=== PATIENT | male | born 1950 | race Hispanic/Latino ===

== ENCOUNTER 2018-06-27 10:45 | Day surgery (SDC) | payer OTHER ==
[2018-06-25 16:08] LABS: Absolute Lymphocytes (CBC) 1.5 K/uL (0.7-4.9); Absolute Monocytes 0.6 K/uL (0.1-1.3); Absolute Neutrophil 5.7 K/uL (1.8-8.0); Basophils % 0.3 % (0-1.3); Eosinophils % 0.6 % (0-4.4); Hematocrit 40.2 % (39.6-49.0); Lymphocytes % 19.4 % (15.3-44.8); MPV 9.7 fL (7.6-11.3); Monocytes % 7.9 % (3.3-12.3); RBC Red Blood Cell Count 4.35 M/uL (4.33-5.43)
[2018-06-25 16:13] LABS: Protime INR 1.04
--- NOTE | 2018-06-25 16:14 | RAD REPORT ---
EXAM DESCRIPTION: Edward Aceves (2 Views)06/25/2018 3:56 pm CLINICAL HISTORY: Preop for prostate surgery. Coronary artery disease COMPARISON: 2017 FINDINGS: The lungs appear clear of acute infiltrate. The heart is normal size IMPRESSION: No acute abnormalities displayed
[2018-06-25 16:23] LABS: Potassium 4.3 mmol/L (3.5-5.1)
[2018-06-25 16:28] LABS: Urine Appearance CLEAR; Urine Bilirubin NEGATIVE (NEG); Urine Blood NEGATIVE (NEG); Urine Color YELLOW; Urine Glucose NEGATIVE (NEG); Urine Protein NEGATIVE (NEG); Urine Urobilinogen 0.2 mg/dL (0.2-1.0); Urine pH 6.5 (5.0-7.0)
[2018-06-25 16:34] LABS: Urine Microscopic Reflex NO UMIC
--- NOTE | 2018-06-26 06:02 | EKG ---
Test Date: 2018-06-25 Test Time: 15:34:16 Outside Plant Technician: SURINDER MEASUREMENT RESULTS: Intervals: Rate: 67 AK: 134 QRSD: 100 QT: 380 QTc: 401 Parkin: P: 40 AK: 134 QRS: 43 T: 39 INTERPRETIVE STATEMENTS: Normal sinus rhythm Incomplete right bundle branch block Borderline ECG Compared to ECG 05/02/2017 11:50:59 Incomplete right bundle-branch block now present Sinus arrhythmia no longer present Electronically Signed On 06-26-18 06:01:21 BACKHAUL DRIVER by Abhilash Flood
[2018-06-27] MEDS ORDERED: Ringers Lactate 1,000 ML IV ONE (11:17)
[2018-06-27] MEDS ORDERED: GENTAMICIN 100 MG/100 ML BAG 100 MG/100 ML BAG IV ONE (11:18)
[2018-06-27] MEDS ORDERED: MIDAZOLAM HCL 2 MG/2 ML INJ ONE ×2 (12:28→12:36)
[2018-06-27] MEDS ORDERED: FENTANYL CITR 100 MCG/2 ML ONE (12:35)
[2018-06-27] MEDS ORDERED: PROPOFOL 200 MG/20 ML VIAL IV ONE (12:35)
[2018-06-27] MEDS ORDERED: KETOROLAC 30 MG/ML INJ ONE (12:58)
[2018-06-27] MEDS ORDERED: ONDANSETRON 4 MG/2 ML VIAL ONE (12:59)
[2018-06-27] MEDS ORDERED: OXYBUTYNIN CHLORIDE 5 MG TAB ONE (14:07)
[2018-06-27 15:03] VITALS: BP 155/72; TEMP 97; O2SAT 100
== END 2018-06-27 14:59 | disposition home or self-care (01) ==
LOC: OR 10:45
PROVIDERS: ATTEND Urology
PROC: 0T7D8DZ Dilation of Urethra with Intraluminal Device, Via Natural or Artificial Opening Endoscopic (ICD-10-PCS; principal; 2018-06-27 12:00)
DX: N40.1 Benign prostatic hyperplasia with lower urinary tract symptoms (principal); R39.12 Poor urinary stream; K40.90 Unilateral inguinal hernia, without obstruction or gangrene, not specified as recurrent; F17.200 Nicotine dependence, unspecified, uncomplicated; Z79.02 Long term (current) use of antithrombotics/antiplatelets; Z79.899 Other long term (current) drug therapy; Z95.5 Presence of coronary angioplasty implant and graft
CPT/HCPCS: 36415; 71046; 80048; 81003; 85025; 85610; 85730; 87086; 87088; 93005; C9740; J1580; J2250 ×2; J2405; J2704; J3010

== ENCOUNTER 2021-01-04 13:26 | Emergency (ER) | payer MEDICARE ==
[2021-01-04 14:46] LABS: Basophils % 0.6 % (0-1.3); Hematocrit 40.3 % (39.6-49.0); Lymphocytes % 17.9 % (15.3-44.8); MPV 9.5 fL (7.6-11.3); RBC Red Blood Cell Count 4.34 M/uL (4.33-5.43)
[2021-01-04 14:51] LABS: Urine Blood Trace-intact (Negative); Urine Glucose Negative (Negative); Urine Protein Negative (Negative)
[2021-01-04] MEDS ORDERED: LORAZEPAM 0.5 MG TABLET ONE (15:02)
[2021-01-04 15:08] LABS: Albumin 3.9 g/dL (3.4-5.0); Bilirubin Total 0.4 mg/dL (0.2-1.0); Potassium 3.7 mmol/L (3.5-5.1); Protein, Total 7.3 g/dL (6.4-8.2)
[2021-01-04 15:08] LABS: Barbiturates NEGATIVE (NEGATIVE); Benzodiazepines NEGATIVE (NEGATIVE); Cocaine NEGATIVE (NEGATIVE); METHAMPHETAM NEGATIVE (NEGATIVE); Methadone NEGATIVE (NEGATIVE); Opiates NEGATIVE (NEGATIVE); Phencyclidine NEGATIVE (NEGATIVE); THC Cannibis POSITIVE (NEGATIVE)
--- NOTE | 2021-01-04 15:30 | EDPHYS ---
Physician Documentation [facility] Name: Prince Mahmood Age: 70 yrs Sex: Male : 1950 Arrival Date: 01/04/2021 Time: 13:29 Bed 14 Private MD: ED Physician Paul Kelly HPI: 01/04 14:18 This 70 yrs old Male presents to ER via Ambulatory with complaints of Rash. pm1 14:18 The patient's rash thought to be caused by insect bites, or parasites. The rash is pm1 located on the body diffusely. The rash can be described as you cant see the rash but it is itchy. Mostly at night time. Onset: The symptoms/episode began/occurred 2 month(s) ago. Associated signs and symptoms: Pertinent positives: itching, Pertinent negatives: burning sensation, difficulty breathing, fever, vomiting, wheezing. Severity of symptoms: in the emergency department the symptoms have improved. Treatment given at home: None. The patient has been recently seen by a physician: the patient's primary care provider, with similar presenting complaints, Prescribed benadryl and seroquel about 1 month ago but has not been taking it. Saw his PCP today for the same complaint and she was upset with him that she is not taking the medications. Historical: - Allergies: 14:01 None; jd3 - PMHx: 14:01 High Cholesterol; Cirrhosis; GERD; blind in R eye; jd3 - PSHx: 14:01 back; benign tumor removed from R side of neck; jd3 - Immunization history:: Adult Immunizations up to date. - Social history:: Smoking status: Patient denies any tobacco usage or history of. ROS: 14:18 Eyes: Negative for injury, pain, redness, and discharge, ENT: Negative for injury, pm1 pain, and discharge, Neck: Negative for injury, pain, and swelling, Cardiovascular: Negative for chest pain, palpitations, and edema, Respiratory: Negative for shortness of breath, cough, wheezing, and pleuritic chest pain, Abdomen/GI: Negative for abdominal pain, nausea, vomiting, diarrhea, and constipation, Back: Negative for injury and pain, MS/Extremity: Negative for injury and deformity. 14:18 Constitutional: Positive for weight loss. 14:18 Skin: Positive for rash, diffusely, itching. 14:18 Psych: Positive for insomnia. 14:18 All other systems are negative. Exam: 14:18 Constitutional: This is a well developed, well nourished patient who is awake, alert, pm1 and in no acute distress. Head/Face: Normocephalic, atraumatic. 14:18 MS/ Extremity: Pulses equal, no cyanosis. Neurovascular intact. Full, normal range of motion. 14:18 Eyes: Exam is negative for acute changes, Extraocular movements: no acute changes, Conjunctiva: no acute changes, no injection, Sclera: no acute changes, icterus, is not appreciated. 14:18 ENT: Exam is negative for acute changes, Mouth: Lips: normal, Oral mucosa: normal, pink and intact, moist. 14:18 Cardiovascular: Rate: normal, Rhythm: regular, Pulses: no pulse deficits are appreciated. 14:18 Cardiovascular: Heart sounds: normal, normal S1and S2, Edema: is not appreciated. 14:18 Respiratory: Exam negative for acute changes, respiratory distress, shortness of breath, the patient does not display signs of respiratory distress. 14:18 Abdomen/GI: Inspection: abdomen appears normal, Palpation: abdomen is soft and non-tender, in all quadrants. 14:18 Skin: Appearance: normal except for affected area, no rash present. Small abrasions present diffusely. 14:18 Neuro: Exam negative for acute changes, Orientation: is normal, Mentation: is normal, Motor: is normal, moves all fours. Vital Signs: 13:56 BP 137 / 70; Pulse 70; Resp 16; Temp 98.2(TE); Pulse Ox 100% on R/A; Weight 65.32 kg; jd3 Height 5 ft. 2 in. (157.48 cm); Pain 0/10; 15:45 BP 147 / 74; Pulse 71; Resp 15; Pulse Ox 100% ; jl7 13:56 Body Mass Index 26.34 (65.32 kg, 157.48 cm) jd3 MDM: 14:18 Patient medically screened. pm1 15:28 Data reviewed: vital signs. Data interpreted: Pulse oximetry: on room air is 100 %. pm1 Interpretation: normal. Counseling: I had a detailed discussion with the patient and/or guardian regarding: the historical points, exam findings, and any diagnostic results supporting the discharge/admit diagnosis, lab results, the need for outpatient follow up, to return to the emergency department if symptoms worsen or persist or if there are any questions or concerns that arise at home. 01/04 14:18 Order name: CBC with Diff; Complete Time: 14:56 pm1 01/04 14:18 Order name: CMP; Complete Time: 15:27 pm1 01/04 14:37 Order name: UDS; Complete Time: 15:27 pm1 01/04 14:37 Order name: Urine Dipstick-Ancillary (obtain specimen); Complete Time: 14:50 pm1 01/04 14:50 Order name: Urine Dipstick-Ancillary; Complete Time: 14:56 EDMS Administered Medications: 14:43 Drug: Ativan (LORazepam) 0.5 mg Route: PO; 7 15:46 Follow up: Response: No adverse reaction jl7 Disposition: 16:02 Co-signature as Attending Physician, Paul Kelly MD. rn Disposition: 01/04/21 15:29 Discharged to Home. Impression: Pruritus, Cannabis abuse. - Condition is Stable. - Discharge Instructions: Cannabis Use Disorder. - Medication Reconciliation Form, Thank You Letter, Antibiotic Education, Prescription Opioid Use form. - Follow up: Emergency Department; When: As needed; Reason: Worsening of condition. Follow up: Private Physician; When: 2 - 3 days; Reason: Recheck today's complaints, Continuance of care, Re-evaluation by your physician. - Problem is new. - Symptoms have improved. Signatures: Dispatcher [employer] EDMS Paul Kelly MD MD rn Marinas, Patrick, INSEMINATION WORKER INSEMINATION WORKER pm1 Isak Vickers RN RN jl7 Zackery Rosa RN RN jd3 Corrections: (The following items were deleted from the chart) 15:52 15:29 01/04/2021 15:29 Discharged to Home. Impression: Pruritus; Cannabis abuse. jl7 Condition is Stable. Forms are Medication Reconciliation Form, Thank You Letter, Antibiotic Education, Prescription Opioid Use. Follow up: Emergency Department; When: As needed; Reason: Worsening of condition. Follow up: Private Physician; When: 2 - 3 days; Reason: Recheck today's complaints, Continuance of care, Re-evaluation by your physician. Problem is new. Symptoms have improved. pm1
--- NOTE | 2021-01-04 15:30 | ER ---
Nurse's Notes [facility] Name: Prince Mahmood Age: 70 yrs Sex: Male : 1950 Arrival Date: 01/04/2021 Time: 13:29 Bed 14 Private MD: Diagnosis: Pruritus; Cannabis abuse Presentation: 01/04 13:56 Chief complaint: Patient states: itching all over x 1 month which is leading to jd3 insomnia and decreased appetite. Pt reports that he has lost 20 lbs in the past month.. Kairn Taylor NP prescribed cream which is not helping and sleep aids which patient did not take. Denies rash. Coronavirus screen: Client denies travel out of the [place] in the last 14 days. Ebola Screen: Patient denies exposure to infectious person. Patient denies travel to an Ebola-affected area in the 21 days before illness onset. Initial Sepsis Screen: Does the patient meet any 2 criteria? No. Patient's initial sepsis screen is negative. Does the patient have a suspected source of infection? No. Patient's initial sepsis screen is negative. Risk Assessment: Do you want to hurt yourself or someone else? Patient reports no desire to harm self or others. Onset of symptoms was December 04, 2020. 13:56 Method Of Arrival: Ambulatory j 13:56 Acuity: TIFFANIE 3 jd3 Historical: - Allergies: 14:01 None; jd3 - PMHx: 14:01 High Cholesterol; Cirrhosis; GERD; blind in R eye; jd3 - PSHx: 14:01 back; benign tumor removed from R side of neck; jd3 - Immunization history:: Adult Immunizations up to date. - Social history:: Smoking status: Patient denies any tobacco usage or history of. Screenin:45 Abuse screen: Denies threats or abuse. Denies injuries from another. Nutritional jl7 screening: No deficits noted. Tuberculosis screening: No symptoms or risk factors identified. Fall Risk IV access (20 points). Total Rodrigues Fall Scale indicates No Risk (0-24 pts). Assessment: 14:45 General: Appears in no apparent distress. uncomfortable, Behavior is cooperative, jl7 anxious, restless, Pt states "It feels like something crawling in my skin on my feet sometimes." KATE Araujo notified. Pain: Denies pain. Neuro: Level of Consciousness is awake, alert, obeys commands, Oriented to person, place, time, situation. Cardiovascular: Patient's skin is warm and dry. Respiratory: Airway is patent Respiratory effort is even, unlabored, Respiratory pattern is regular, symmetrical. Derm: Skin is pink, warm \\T\\ dry. minor redness noted behind right ear and minor abrasions noted to bilateral calf areas. 15:44 Reassessment: KATE Araujo at bedside discussing results and POC. jl7 15:51 Reassessment: Pt states "I'm going to call my brother to come get me.". jl7 Vital Signs: 13:56 BP 137 / 70; Pulse 70; Resp 16; Temp 98.2(TE); Pulse Ox 100% on R/A; Weight 65.32 kg; jd3 Height 5 ft. 2 in. (157.48 cm); Pain 0/10; 15:45 BP 147 / 74; Pulse 71; Resp 15; Pulse Ox 100% ; jl7 13:56 Body Mass Index 26.34 (65.32 kg, 157.48 cm) jd3 ED Course: 13:29 Patient arrived in ED. mr 13:58 Triage completed. jd3 14:01 Arm band placed on right wrist. jd3 14:05 Isak Vickers, KELLY is Primary Nurse. jl7 14:09 Van Maldonado NP is PHCP. pm1 14:09 Paul Kelly MD is Attending Physician. pm1 14:45 Patient has correct armband on for positive identification. Bed in low position. Call jl7 light in reach. Side rails up X 1. 14:45 Initial lab(s) drawn, by me, sent to lab. Urine collected: clean catch specimen, clear. jl7 Inserted saline lock: 20 gauge in left antecubital area, using aseptic technique. Blood collected. 15:51 No provider procedures requiring assistance completed. IV discontinued, intact, jl7 bleeding controlled, No redness/swelling at site. Pressure dressing applied. Administered Medications: 14:43 Drug: Ativan (LORazepam) 0.5 mg Route: PO; jl7 15:46 Follow up: Response: No adverse reaction jl7 Outcome: 15:29 Discharge ordered by . pm1 15:51 Discharged to home ambulatory, with family. jl7 15:51 Condition: stable 15:51 Discharge instructions given to patient, Instructed on discharge instructions, follow up and referral plans. Demonstrated understanding of instructions, follow-up care. 15:52 Patient left the ED. jl7 Signatures: Cadence Funez EricaVan, CUSTOMER PROGRAM MANAGER CUSTOMER PROGRAM MANAGER pm1 Isak Vickers, RN RN jl7 Zackery Rosa RN RN jd3
[2021-01-04 16:07] VITALS: TEMP 98.2; O2SAT 100
[2021-01-04 16:09] VITALS: BP 147/74
== END 2021-01-04 15:52 | disposition home or self-care (01) ==
LOC: ER 13:26
DX: L29.9 Pruritus, unspecified (principal); F12.10 Cannabis abuse, uncomplicated
CPT/HCPCS: 36415; 80053; 80307; 81003; 85025; 99283

== ENCOUNTER 2021-06-20 14:36 | Emergency (ER) | payer OTHER ==
--- NOTE | 2021-06-20 15:27 | RAD REPORT ---
EXAM DESCRIPTION: RAD - Chest Single View - 06/20/2021 3:12 pm CLINICAL HISTORY: CHEST PAIN COMPARISON: June 2018 TECHNIQUE: AP portable chest image was obtained 06/20/2021 3:12 pm . FINDINGS: No focal lung parenchymal process. Interstitial pattern is prominent but unchanged from pr ior imaging. No failure or volume overload. Hilar regions are similar to comparison. Heart and vasculature are normal. No measurable pleural effusion and no pneumothorax. No acute bony abnormality seen. No acute aortic findings suspected. IMPRESSION: No acute cardiopulmonary process. No significant change from comparison study.
[2021-06-20 15:30] LABS: Absolute Lymphocytes (CBC) 1.1 K/uL (0.7-4.9); Basophils % 0.3 % (0-1.3); Hematocrit 39.8 % (39.6-49.0); Lymphocytes % 18.4 % (15.3-44.8); MPV 8.9 fL (7.6-11.3); RBC Red Blood Cell Count 4.48 M/uL (4.33-5.43)
[2021-06-20 15:34] LABS: Protime INR 1.17
[2021-06-20] MEDS ORDERED: METOCLOPRAMIDE 10 MG/2mL INJ ONE (15:40)
[2021-06-20] MEDS ORDERED: CEFTRIAXONE 1000 MG/VIAL ONE (15:40)
[2021-06-20] MEDS ORDERED: KETOROLAC 30 MG/ML INJ ONE (15:41)
[2021-06-20] MEDS ORDERED: NA CHLORIDE 0.9% 1,000 ML ONE (15:41)
[2021-06-20 15:52] LABS: ALT/SGPT 22 U/L (12-78); AST/SGOT 15 U/L (15-37); Albumin 3.4 g/dL (3.4-5.0); Alkaline Phosphatase 102 U/L (45-117); BUN Blood Urea Nitrogen 14 mg/dL (7-18); Bicarbonate 22 mmol/L (21-32); Bilirubin Direct 0.2 mg/dL (0-0.2); Bilirubin Total 0.7 mg/dL (0.2-1.0); Glucose Level 108 mg/dL (74-106); Magnesium 1.9 mg/dL (1.8-2.4); NT PRO-BNP 180 pg/mL (<125); Potassium 3.8 mmol/L (3.5-5.1); Protein, Total 7.2 g/dL (6.4-8.2); Sodium Level 132 mmol/L (136-145); Troponin (Emerg Dept Use Only) < 0.02 ng/mL (0.0-0.045)
--- NOTE | 2021-06-20 16:52 | RAD REPORT ---
EXAM DESCRIPTION: CT - Abdomen Pelvis W Contrast - 06/20/2021 3:59 pm CLINICAL HISTORY: ABD PAIN COMPARISON: CT abdomen and pelvis November 2016 TECHNIQUE: Biphasic, helical CT imaging of the abdomen and pelvis was performed following 100 ml non -ionic IV contrast. No oral contrast administered. All CT scans are performed using dose optimization technique as appropriate and may include automated exposure control or mA/KV adjustment according to patient size. FINDINGS: No suspicious findings in the lung bases. Liver is normal size. No capsule nodularity. In the inferior right lobe a 7 millimeter round fluid at tenuation mass is present increased slightly from 2017. This is believed to be an incidental cyst. No worrisome liver parenchymal lesion. Pancreas and spleen show no suspicious findings. Gallbladder and biliary tree are also without suspic ious finding. Symmetric renal function is seen with no hydronephrosis or suspicious renal mass. No pyelonephritis o r acute parenchymal process. No bladder abnormalities. No adrenal abnormalities. Prostate calcificati ons are present. Numerous linear hyperdensities are present near the prostate bladder interface proba pro seeds from prior treatment. No gastric dilatation or gastric wall thickening. Absence of gastric content accentuates wall thickne ss decreasing CT sensitivity. No dilation or large or small bowel loops. No appendicitis. No free ai r, free fluid or inflammatory stranding. No hernia, mass or bulky lymphadenopathy. Disc and bone degenerative changes are present. No acute bone process seen. Bone infarct or enchondro ma changes are present in the left femoral head and neck region stable from the 2017 study. IMPRESSION: Contrast enhanced CT abdomen and pelvis showing no acute or emergent finding. No significant change from 2017.
--- NOTE | 2021-06-20 17:14 | ER ---
Nurse's Notes [facility] Name: Prince Mahmood Age: 71 yrs Sex: Male : 1950 Arrival Date: 06/20/2021 Time: 14:38 Bed 8 Private MD: Sol Taylor C Diagnosis: Acute bronchitis, unspecified Presentation: 06/20 14:49 Chief complaint: Patient states: has been 'feeling sick' since after Thanksgiving. vg1 States weakness, sore throat, cough, runny nose, fever, DORA ear pain, chest pain, ABD pain and constipation. States saw PCP on Monday06/18/21 and was prescribed Mucus Relief ER DM and Azithromycin. States medication isnt helping. Coronavirus screen: Vaccine status: Patient reports receiving the 2nd dose of the covid vaccine. Client denies travel out of the [place] in the last 14 days. Ebola Screen: Patient negative for fever greater than or equal to 101.5 degrees Fahrenheit, and additional compatible Ebola Virus Disease symptoms. Initial Sepsis Screen: Does the patient meet any 2 criteria? No. Patient's initial sepsis screen is negative. Does the patient have a suspected source of infection? No. Patient's initial sepsis screen is negative. Risk Assessment: Do you want to hurt yourself or someone else? Patient reports no desire to harm self or others. Onset of symptoms was June 05, 2021. 14:49 Method Of Arrival: Wheelchair vg1 14:49 Acuity: TIFFANIE 3 vg1 Triage Assessment: 14:53 General: Appears in no apparent distress. uncomfortable, Behavior is calm, cooperative. vg1 Pain: Complains of pain in chest and abdomen and head Pain currently is 10 out of 10 on a pain scale. Also complains of constipation, nausea. Neuro: Level of Consciousness is awake, alert, obeys commands, Oriented to person, place, time, situation. Historical: - Allergies: 14:53 none; vg1 - Home Meds: 14:53 atorvastatin oral [Active]; clopidogrel oral [Active]; pantoprazole oral [Active]; vg1 - PMHx: 14:53 blind in R eye; Cirrhosis; GERD; High Cholesterol; vg1 - PSHx: 14:53 None; vg1 - Immunization history:: Client reports receiving the 2nd dose of the Covid vaccine. - Social history:: Smoking status: Patient denies any tobacco usage or history of. Patient uses Patient/guardian denies using alcohol, street drugs, The patient lives with family. - Family history:: not pertinent. Screenin:00 Abuse screen: Denies threats or abuse. Denies injuries from another. Nutritional bp screening: No deficits noted. Tuberculosis screening: No symptoms or risk factors identified. Fall Risk None identified. Assessment: 15:00 General: SEE TRIAGE NOTE. bp 15:33 Reassessment: No changes from previously documented assessment. Patient and/or family bp updated on plan of care and expected duration. Pain level reassessed. Patient is alert, oriented x 3, equal unlabored respirations, skin warm/dry/pink. PT TO CT. Vital Signs: 14:49 BP 127 / 74; Pulse 88; Resp 18; Temp 98.9; Pulse Ox 98% ; Weight 68.04 kg; Height 5 ft. vg1 2 in. (157.48 cm); Pain 10/10; 17:40 BP 155 / 78; Pulse 82; Resp 11; Temp 98.5; Pulse Ox 100% ; bp 14:49 Body Mass Index 27.44 (68.04 kg, 157.48 cm) vg1 [place] Coma Score: 17:05 Eye Response: spontaneous(4). Verbal Response: oriented(5). Motor Response: obeys ma2 commands(6). Total: 15. ED Course: 14:38 Patient arrived in ED. am2 14:38 Sol Taylor FNP is Private Physician. am2 14:52 Triage completed. vg1 14:53 Arm band placed on. vg1 14:59 Leonardo Last MD is Attending Physician. ma2 15:00 Patient has correct armband on for positive identification. Bed in low position. Call bp light in reach. Side rails up X2. Adult w/ patient. 15:05 EKG done, by ED staff, reviewed by Leonardo Last MD. dh3 15:10 Initial lab(s) drawn, by oh, sent to lab. Inserted saline lock: 20 gauge in right dh3 forearm, using aseptic technique. Blood collected. 15:12 XRAY Chest (1 view) In Process Unspecified. EDMS 15:36 Hayder Jesus, RN is Primary Nurse. bp 15:59 CT Abd/Pelvis - IV Contrast Only In Process Unspecified. EDMS Administered Medications: 15:40 Drug: NS 0.9% 1000 ml Route: IV; Rate: 1 bolus; Site: right antecubital; bp 17:41 Follow up: IV Status: Completed infusion; IV Intake: 1000ml bp 15:40 Drug: Ketorolac 30 mg Route: IVP; Site: right antecubital; bp 17:41 Follow up: Response: Pain is decreased bp 15:40 Drug: Reglan (metoCLOPramide) 10 mg Route: IVP; Site: left wrist; bp 17:41 Follow up: Response: No adverse reaction bp 15:40 Drug: Rocephin (cefTRIAXone) 1 grams Route: IV; Rate: calculated rate; Site: right bp antecubital; Intake: 17:41 IV: 1000ml; Total: 1000ml. bp Outcome: 17:13 Discharge ordered by . marge 17:58 Patient left the ED. 6 Signatures: Dispatcher [employer] EDMS Caren Vazquez Deanna 3 Hayder Jesus, RN RN Leonardo Last MD MD ma2 Leyda Flynn RN RN [facility] Zahra Narvaez RN RN 6 Corrections: (The following items were deleted from the chart) 14:56 14:49 Chief complaint: Patient states: has been 'feeling sick' since after vg1 Thanksgiving. States weakness, sore throat, cough, runny nose, fever, DORA ear pain and ABD pain. States saw PCP on Monday06/18/21 and was prescribed Mucus Relief ER DM and Azithromycin. States medication isnt helping. vg1
--- NOTE | 2021-06-20 17:14 | EDPHYS ---
Physician Documentation [facility] Name: Prince Mahmood Age: 71 yrs Sex: Male : 1950 Arrival Date: 06/20/2021 Time: 14:38 Bed 8 Private MD: Sol Taylor C ED Physician Leonardo Last HPI: 06/20 15:06 This 71 yrs old Male presents to ER via Wheelchair with complaints of General ma2 Weakness, Headache, Chest Pain, Abdominal Distention, dehydration. 15:06 Onset: The symptoms/episode began/occurred gradually, 1 day(s) ago. Severity of ma2 symptoms: At its worst the pain was moderate, in the emergency department the pain is unchanged. Headache History: The patient has had previous headaches and this one is similar to previous episodes. The patient has experienced similar episodes in the past. Patient has history of coronary artery disease, here with fever sore throat cough sputum production, has dehydration, abdominal pain and constipation.. Historical: - Allergies: 14:53 none; vg1 - Home Meds: 14:53 atorvastatin oral [Active]; clopidogrel oral [Active]; pantoprazole oral [Active]; vg1 - PMHx: 14:53 blind in R eye; Cirrhosis; GERD; High Cholesterol; vg1 - PSHx: 14:53 None; vg1 - Immunization history:: Client reports receiving the 2nd dose of the Covid vaccine. - Social history:: Smoking status: Patient denies any tobacco usage or history of. Patient uses Patient/guardian denies using alcohol, street drugs, The patient lives with family. - Family history:: not pertinent. ROS: 15:06 Constitutional: Negative for fever, chills, and weight loss. ma2 15:06 All other systems are negative. Exam: 15:06 Constitutional: This is a well developed, well nourished patient who is awake, alert, ma2 and in no acute distress. ENT: Nares patent. No nasal discharge, no septal abnormalities noted. Tympanic membranes are normal and external auditory canals are clear. Oropharynx with no redness, swelling, or masses, exudates, or evidence of obstruction, uvula midline. Mucous membranes moist. Neck: Trachea midline, no thyromegaly or masses palpated, and no cervical lymphadenopathy. Supple, full range of motion without nuchal rigidity, or vertebral point tenderness. No Meningismus. Chest/axilla: Normal chest wall appearance and motion. Nontender with no deformity. No lesions are appreciated. Cardiovascular: Regular rate and rhythm with a normal S1 and S2. No gallops, murmurs, or rubs. Normal PMI, no JVD. No pulse deficits. Respiratory: Lungs have equal breath sounds bilaterally, clear to auscultation and percussion. No rales, rhonchi or wheezes noted. No increased work of breathing, no retractions or nasal flaring. Abdomen/GI: Soft, non-tender, with normal bowel sounds. No distension or tympany. No guarding or rebound. No evidence of tenderness throughout. Skin: Warm, dry with normal turgor. Normal color with no rashes, no lesions, and no evidence of cellulitis. MS/ Extremity: Pulses equal, no cyanosis. Neurovascular intact. Full, normal range of motion. Neuro: Awake and alert, GCS 15, oriented to person, place, time, and situation. Cranial nerves II-XII grossly intact. Motor strength 5/5 in all extremities. Sensory grossly intact. Cerebellar exam normal. Normal gait. Vital Signs: 14:49 BP 127 / 74; Pulse 88; Resp 18; Temp 98.9; Pulse Ox 98% ; Weight 68.04 kg; Height 5 ft. vg1 2 in. (157.48 cm); Pain 10/10; 17:40 BP 155 / 78; Pulse 82; Resp 11; Temp 98.5; Pulse Ox 100% ; bp 14:49 Body Mass Index 27.44 (68.04 kg, 157.48 cm) vg1 Petty Coma Score: 17:05 Eye Response: spontaneous(4). Verbal Response: oriented(5). Motor Response: obeys ma2 commands(6). Total: 15. MDM: 14:59 Patient medically screened. ma2 15:06 Differential diagnosis: migraine, tension headache, uremia, Chest pain. ma2 17:05 Data reviewed: vital signs, nurses notes. Counseling: I had a detailed discussion with maBen the patient and/or guardian regarding: the historical points, exam findings, and any diagnostic results supporting the discharge/admit diagnosis, the presence of at least one elevated blood pressure reading (>120/80) during this emergency department visit, the need for outpatient follow up. Response to treatment: the patient's symptoms have resolved after treatment. 06/20 14:44 Order name: Basic Metabolic Panel; Complete Time: 17:03 ma2 06/20 14:44 Order name: CBC with Diff; Complete Time: 17:03 ma2 06/20 14:44 Order name: LFT's; Complete Time: 17:03 ma2 06/20 14:44 Order name: Magnesium; Complete Time: 17:03 ma2 06/20 14:44 Order name: NT PRO-BNP; Complete Time: 17:03 ma2 06/20 14:44 Order name: PT-INR; Complete Time: 17:03 ma2 06/20 14:44 Order name: Troponin (emerg Dept Use Only); Complete Time: 17:03 ma2 06/20 14:44 Order name: XRAY Chest (1 view); Complete Time: 17:03 ma2 06/20 15:00 Order name: SARS-COV-2 RT PCR (Document "Date of Onset" if Symptomatic); Complete Time: ma2 17:06/20 15:06 Order name: CT Abd/Pelvis - IV Contrast Only; Complete Time: 17:03 ma2 06/20 14:44 Order name: EKG; Complete Time: 14:45 ma2 06/20 14:44 Order name: Cardiac monitoring; Complete Time: 15:15 ma2 06/20 14:44 Order name: EKG - Nurse/Tech; Complete Time: 15:15 ma2 06/20 14:44 Order name: IV Saline Lock; Complete Time: 15:15 ma2 06/20 14:44 Order name: Labs collected and sent; Complete Time: 15:15 ma2 06/20 14:44 Order name: O2 Per Protocol; Complete Time: 15:15 ma2 06/20 14:44 Order name: O2 Sat Monitoring; Complete Time: 15:15 ma2 Administered Medications: 15:40 Drug: NS 0.9% 1000 ml Route: IV; Rate: 1 bolus; Site: right antecubital; bp 17:41 Follow up: IV Status: Completed infusion; IV Intake: 1000ml bp 15:40 Drug: Ketorolac 30 mg Route: IVP; Site: right antecubital; bp 17:41 Follow up: Response: Pain is decreased bp 15:40 Drug: Reglan (metoCLOPramide) 10 mg Route: IVP; Site: left wrist; bp 17:41 Follow up: Response: No adverse reaction bp 15:40 Drug: Rocephin (cefTRIAXone) 1 grams Route: IV; Rate: calculated rate; Site: right bp antecubital; Disposition Summary: 06/20/21 17:13 Discharge Ordered Location: Home ma2 Condition: Stable ma2 Diagnosis - Acute bronchitis, unspecified ma2 Followup: ma2 - With: Private Physician - When: Tomorrow - Reason: If symptoms return, Continuance of care Discharge Instructions: - Discharge Summary Sheet ma2 - Acute Bronchitis, Adult ma2 Forms: - Medication Reconciliation Form ma2 - Thank You Letter ma2 - Antibiotic Education ma2 - Prescription Opioid Use ma2 Prescriptions: - Reglan 10 mg Oral Tablet - take 1 tablet by ORAL route every 6 hours . take 30 minutes before meals and at ma2 bedtime; 100 tablet; Refills: 0, Product Selection Permitted - Diclofenac Sodium 75 mg Oral Tablet Sustained Release - take 1 tablet by ORAL route 2 times per day; 30 tablet; Refills: 0, Product ma2 Selection Permitted - Medrol (Leif) 4 mg Oral Tablets, Dose Pack - take 1 tablet by ORAL route as directed - follow package instructions; 1 ma2 packet; Refills: 0, Product Selection Permitted Signatures: Dispatcher [employer] Hayder Sarmiento, RN RN Leonardo Lucas MD MD ma2 Leyda Flynn RN RN vg1
[2021-06-20 18:21] VITALS: BP 155/78; TEMP 98.5; O2SAT 100
== END 2021-06-20 17:58 | disposition home or self-care (01) ==
LOC: ER 14:36
DX: J20.9 Acute bronchitis, unspecified (principal); E78.00 Pure hypercholesterolemia, unspecified; Z20.822 Contact with and (suspected) exposure to COVID-19
CPT/HCPCS: 93005; 85025; 80048; 36415; 83735; 85610; 82565; 80076; 84484; 83880; 74177; 71045; 99284; U0003; Q9967; J2765; J7030

== ENCOUNTER 2021-12-13 09:58 | Emergency (ER) | payer OTHER ==
--- NOTE | 2021-12-13 11:19 | RAD REPORT ---
EXAM DESCRIPTION: RAD - Chest Single View - 12/13/2021 11:11 am CLINICAL HISTORY: left shoulder pain Chest pain. COMPARISON: Chest Single View dated 06/20/2021; Chest Pa And Lat (2 Views) dated 06/25/2018; Chest S deyvi View dated 04/30/2017; CHEST SINGLE VIEW dated 03/16/2008 FINDINGS: Portable technique limits examination quality. The lungs are mildly emphysematous but grossly clear. The heart is normal in size. No displaced fract ures. IMPRESSION: Mild COPD noted.
--- NOTE | 2021-12-13 11:21 | RAD REPORT ---
EXAM DESCRIPTION: RAD - Shoulder Left 2 View - 12/13/2021 11:11 am CLINICAL HISTORY: PAIN COMPARISON: No comparisons FINDINGS: Mild osteoarthritis affects the AC joint and glenohumeral joint. The bones are mildly ariel neralized. No acute fracture or dislocation is seen.
--- NOTE | 2021-12-13 11:22 | RAD REPORT ---
EXAM DESCRIPTION: RAD - C Spine Ap/Lat - 12/13/2021 11:11 am CLINICAL HISTORY: PAIN COMPARISON: No comparisons FINDINGS: Cervical bodies are normal in height and alignment.Prominent mid cervical degenerative aida nges are present most notable at C4-5 and C5-6 with disc thinning and posterior osteophyte formation. Bony fusion suspected of the C6 and C7 vertebra.The odontoid is normal and the lateral masses are sym metric. No prevertebral soft tissue thickening or other suspicious soft tissue finding. IMPRESSION: Moderate midcervical degenerative spondylosis.
[2021-12-13 12:04] LABS: Absolute Lymphocytes (CBC) 1.1 K/uL (0.7-4.9); Hematocrit 42.3 % (39.6-49.0); Lymphocytes % 15.6 % (15.3-44.8); MPV 9.2 fL (7.6-11.3); RBC Red Blood Cell Count 4.65 M/uL (4.33-5.43)
[2021-12-13 12:14] LABS: Potassium 3.6 mmol/L (3.5-5.1); Troponin High Sensitivity 4.3 pg/mL (<58.9)
[2021-12-13 12:33] LABS: Urine Blood Trace-intact (Negative); Urine Glucose Negative (Negative); Urine Protein Negative (Negative)
--- NOTE | 2021-12-13 13:18 | EKG ---
Test Date: 2021-12-13 Test Time: 10:39:43 Weaver Apprentice: CYRUS MEASUREMENT RESULTS: Intervals: Rate: 81 [place]: 164 QRSD: 96 QT: 352 QTc: 408 [place]: P: 79 [place]: 164 QRS: 75 T: 57 INTERPRETIVE STATEMENTS: Normal sinus rhythm Incomplete right bundle branch block Cannot rule out Anterior infarct, age undetermined Abnormal ECG Compared to ECG 06/20/2021 15:00:39 Incomplete right bundle-branch block now present Myocardial infarct finding now present Sinus arrhythmia no longer present Electronically Signed On 12-13-21 13:17:55 CDT by Flakito Liu
--- NOTE | 2021-12-13 14:43 | ER ---
Nurse's Notes [facility] Name: Prince Mahmood Age: 71 yrs Sex: Male : 1950 Arrival Date: 12/13/2021 Time: 09:58 Bed 5 Private MD: Diagnosis: Pain in left shoulder Presentation: 12/13 10:22 Chief complaint: Patient states: woke up Monday with pain in left shoulder and into iw left chest and into left wrist, pain has been constant, hx of two stents about 10 years ago , is also peeing blood X 2 months, it had cleared up but it came back a week ago , has been on abx since then. Coronavirus screen: At this time, the client does not indicate any symptoms associated with coronavirus-19. Ebola Screen: Patient negative for fever greater than or equal to 101.5 degrees Fahrenheit, and additional compatible Ebola Virus Disease symptoms Patient denies exposure to infectious person. Patient denies travel to an Ebola-affected area in the 21 days before illness onset. No symptoms or risks identified at this time. Initial Sepsis Screen: Does the patient meet any 2 criteria? No. Patient's initial sepsis screen is negative. Does the patient have a suspected source of infection? No. Patient's initial sepsis screen is negative. Risk Assessment: Do you want to hurt yourself or someone else? Patient reports no desire to harm self or others. Onset of symptoms was December 11, 2021. 10:22 Method Of Arrival: Ambulatory iw 10:22 Acuity: TIFFANIE 3 iw Historical: - Allergies: 10:24 NKA; iw - Home Meds: 10:24 tamsulosin 0.4 mg oral cap 1 cap once daily [Active]; pantoprazole 40 mg oral TbEC once iw daily [Active]; clopidogrel 75 mg oral tab 1 tab [Active]; quetiapine 25 mg oral tab daily [Active]; Cephalexin Oral [Active]; atorvastatin 80 mg oral tab 1 tab once daily [Active]; - PMHx: 10:24 blind in R eye; Cirrhosis; GERD; High Cholesterol; iw - PSHx: 10:24 cardiac stent; iw - Family history:: not pertinent. - Hospitalizations: : No recent hospitalization is reported. Screenin:02 Abuse screen: Denies threats or abuse. Denies injuries from another. Nutritional iw screening: On. Tuberculosis screening: No symptoms or risk factors identified. Fall Risk None identified. Assessment: 10:40 General: Appears uncomfortable, Behavior is calm, cooperative. Pain: Complains of pain aa5 in left shoulder Pain radiates to anterior aspect of left upper chest Pain currently is 9 out of 10 on a pain scale. Quality of pain is described as sharp, shooting, Pain began 2-3 days ago. Is intermittent. Neuro: Level of Consciousness is awake, alert, obeys commands, Oriented to person, place, time, situation. Cardiovascular: Heart tones S1 S2 present Rhythm is regular. Respiratory: Airway is patent Respiratory effort is even, unlabored, Respiratory pattern is regular, symmetrical, Breath sounds are clear bilaterally. GI: Abdomen is non-distended, Bowel sounds present X 4 quads. Abd is soft X 4 quads Reports pain to LLQ x 1 month ago, pt reports he is being treated for this pain by his PCP. : Reports hematuria x 1 week ago, reports being treated for this by his PCP. EENT: No signs and/or symptoms were reported regarding the EENT system. Derm: Skin is pink, warm \T\ dry. Musculoskeletal: Range of motion: intact in all extremities. 11:30 Reassessment: Patient is alert, oriented x 3, equal unlabored respirations, skin aa5 warm/dry/pink. Pt sitting up in bed, requesting pain medication, MD was notified. . 12:30 Reassessment: Patient is alert, oriented x 3, equal unlabored respirations, skin aa5 warm/dry/pink. 14:00 Reassessment: Patient is alert, oriented x 3, equal unlabored respirations, skin aa5 warm/dry/pink. Awaiting repeat troponin result. . 15:02 Reassessment: Patient appears in no apparent distress at this time. Patient and/or iw family updated on plan of care and expected duration. Pain level reassessed. Patient is alert, oriented x 3, equal unlabored respirations, skin warm/dry/pink. Patient states feeling better. Vital Signs: 10:22 BP 139 / 77; Pulse 95; Resp 16; Temp 98.9; Pulse Ox 100% on R/A; iw 12:30 BP 136 / 74; Pulse 82; Resp 14 S; Pulse Ox 98% on R/A; aa5 15:02 BP 132 / 87; Pulse 89; Resp 16; Pulse Ox 98% on R/A; iw ED Course: 09:58 Patient arrived in ED. as 10:24 Triage completed. iw 10:26 Arm band placed on. iw 10:29 Paul Kelly MD is Attending Physician. rn 10:40 Patient has correct armband on for positive identification. Placed in gown. Bed in low aa5 position. Call light in reach. Side rails up X 1. Client placed on continuous cardiac and pulse oximetry monitoring. NIBP monitoring applied. 11:01 Caren Herrera, RN is Primary Nurse. ap3 11:13 XRAY Chest (1 view) In Process Unspecified. EDMS 11:13 XRAY Shoulder LEFT 2 view In Process Unspecified. EDMS 11:13 XRAY C Spine Ap/lat In Process Unspecified. EDMS 11:36 Initial lab(s) drawn, by me, sent to lab. Inserted saline lock: 20 gauge in right aa5 antecubital area, using aseptic technique. Blood collected. 11:49 Primary Nurse role handed off by Caren Herrera, KELLY aa5 11:49 Cristina Zambrano, RN is Primary Nurse. aa5 13:23 Troponin High Sensitivity Sent. iw 15:02 No provider procedures requiring assistance completed. IV discontinued, intact, iw bleeding controlled, No redness/swelling at site. Pressure dressing applied. Administered Medications: No medications were administered Outcome: 14:42 Discharge ordered by . rn 15:02 Patient left the ED. iw Signatures: Dispatcher [employer] Calista Dixon Irene, RN RN Paul Kelly MD MD rn Calderon, Audri, KELLY RN aa5 Caren Herrera RN RN ap3
--- NOTE | 2021-12-13 14:43 | EDPHYS ---
Physician Documentation [facility] Name: Prince Mahmood Age: 71 yrs Sex: Male : 1950 Arrival Date: 12/13/2021 Time: 09:58 Bed 5 Private MD: ED Physician Paul Kelly HPI: 12/13 11:21 This 71 yrs old Male presents to ER via Ambulatory with complaints of Shoulder rn Pain, Arm Pain. 11:21 The patient or guardian complains of pain. left shoulder. Onset: The symptoms/episode rn began/occurred 2 day(s) ago. Modifying factors: the symptoms are alleviated by nothing. The symptoms are aggravated by movement. Severity of symptoms: At their worst the symptoms were moderate, in the emergency department the symptoms have improved. The patient has experienced similar episodes in the past. The patient has not recently seen a physician. Pt reports left shoulder and chest pain for 2 days, woke up with pain, no known injury. No fever. No cough. Reports neck pain and pain radiates down left arm. No weakness. Reports similar symptoms in past when had heart attack, but today pain worsens with movement and elevation of arm. . Historical: - Allergies: 10:24 NKA; iw - Home Meds: 10:24 tamsulosin 0.4 mg oral cap 1 cap once daily [Active]; pantoprazole 40 mg oral TbEC once iw daily [Active]; clopidogrel 75 mg oral tab 1 tab [Active]; quetiapine 25 mg oral tab daily [Active]; Cephalexin Oral [Active]; atorvastatin 80 mg oral tab 1 tab once daily [Active]; - PMHx: 10:24 blind in R eye; Cirrhosis; GERD; High Cholesterol; iw - PSHx: 10:24 cardiac stent; iw - Family history:: not pertinent. - Hospitalizations: : No recent hospitalization is reported. ROS: 11:21 Constitutional: Negative for fever, chills, and weight loss, Eyes: Negative for injury, rn pain, redness, and discharge, Neck: Negative for injury, and swelling Cardiovascular: Negative for chest pain, palpitations, and edema, Respiratory: Negative for shortness of breath, cough, wheezing, and pleuritic chest pain, Abdomen/GI: Negative for abdominal pain, nausea, vomiting, diarrhea, and constipation, Back: Negative for injury and pain, MS/Extremity: Negative for injury and deformity, Skin: Negative for injury, rash, and discoloration, Neuro: Negative for headache, weakness, numbness, tingling, and seizure. Exam: 11:21 Constitutional: This is a well developed, well nourished patient who is awake, alert, rn and in no acute distress. Head/Face: Normocephalic, atraumatic. Eyes: Periorbital areas with no swelling, redness, or edema. Neck: Trachea midline, no masses palpated. Supple, full range of motion without nuchal rigidity, or vertebral point tenderness. No Meningismus. Cardiovascular: Regular rate and rhythm. No pulse deficits. Respiratory: No increased work of breathing, no retractions or nasal flaring. Abdomen/GI: Soft, non-tender Skin: Warm, dry MS/ Extremity: Pulses equal, no cyanosis. Neurovascular intact. Painful ROM left shoulder without focal tenderness or swelling. Neuro: Awake and alert, GCS 15, oriented to person, place, time, and situation. Cranial nerves II-XII grossly intact. Motor strength 5/5 in all extremities. Sensory grossly intact. Vital Signs: 10:22 BP 139 / 77; Pulse 95; Resp 16; Temp 98.9; Pulse Ox 100% on R/A; iw 12:30 BP 136 / 74; Pulse 82; Resp 14 S; Pulse Ox 98% on R/A; aa5 15:02 BP 132 / 87; Pulse 89; Resp 16; Pulse Ox 98% on R/A; iw MDM: 10:29 Patient medically screened. rn 14:40 Differential diagnosis: DJD, tendonitis, cardiac radiation, radiculopathy. Data rn reviewed: vital signs, nurses notes, lab test result(s), EKG, radiologic studies, plain films, and as a result, I will discharge patient. Counseling: I had a detailed discussion with the patient and/or guardian regarding: the historical points, exam findings, and any diagnostic results supporting the discharge/admit diagnosis, lab results, radiology results, the need for outpatient follow up, to return to the emergency department if symptoms worsen or persist or if there are any questions or concerns that arise at home. Special discussion: I discussed with the patient/guardian in detail that at this point there is no indication for admission to the hospital. It is understood, however, that if the symptoms persist or worsen the patient needs to return immediately for re-evaluation. Based on the history and exam findings, there is no indication for further emergent testing or inpatient evaluation. I discussed with the patient/guardian the need to see the primary care provider for further evaluation of the symptoms. ED course: Repeat troponin negative, reproducible pain in shoulder with movement. ECG without acute ischemia. Will dc home with OTC medication and return precautions.. 14:40 ED course: Pt pacing hallway and insists that he be discharged and IV pulled out.. rn 12/13 10:39 Order name: Basic Metabolic Panel; Complete Time: 12:16 rn 12/13 10:39 Order name: CBC with Diff; Complete Time: 12:16 rn 12/13 10:39 Order name: NT PRO-BNP; Complete Time: 12:16 rn 12/13 10:39 Order name: Troponin HS; Complete Time: 12:16 rn 12/13 12:33 Order name: Urine Dipstick-Ancillary; Complete Time: 12:39 EDMS 12/13 12:43 Order name: Troponin High Sensitivity; Complete Time: 14:40 rn 12/13 10:39 Order name: XRAY Chest (1 view); Complete Time: 11:20 rn 12/13 10:39 Order name: EKG; Complete Time: 10:40 rn 12/13 10:39 Order name: Cardiac monitoring; Complete Time: 11:30 rn 12/13 10:39 Order name: EKG - Nurse/Tech; Complete Time: 11:30 rn 12/13 10:39 Order name: IV Saline Lock; Complete Time: 11:49 rn 12/13 10:39 Order name: Labs collected and sent; Complete Time: 11:49 rn 12/13 10:39 Order name: XRAY Shoulder LEFT 2 view; Complete Time: 11:29 rn 12/13 10:39 Order name: XRAY C Spine Ap/lat; Complete Time: 11:29 rn 12/13 10:39 Order name: O2 Per Protocol; Complete Time: 11:30 rn 12/13 10:39 Order name: O2 Sat Monitoring; Complete Time: 11:30 rn 12/13 11:20 Order name: Urine Dipstick-Ancillary (obtain specimen); Complete Time: 12:33 rn 12/13 14:40 Order name: EKG - Nurse/Tech; Complete Time: 14:58 ww Administered Medications: No medications were administered Disposition Summary: 12/13/21 14:42 Discharge Ordered Location: Home rn Problem: new rn Symptoms: are unchanged rn Condition: Stable rn Diagnosis - Pain in left shoulder rn Followup: rn - With: Private Physician - When: As needed - Reason: Recheck today's complaints, Re-evaluation by your physician Discharge Instructions: - Discharge Summary Sheet rn - Pain Without a Known Cause rn - Shoulder Pain rn Forms: - Medication Reconciliation Form rn - Thank You Letter rn - Antibiotic strategy intern - Prescription Opioid Use rn Prescriptions: - Medrol (Leif) 4 mg Oral Tablets, Dose Pack - take 1 tablet by ORAL route as directed - follow package instructions; 1 rn packet; Refills: 0, Product Selection Permitted Signatures: Dispatcher [employer] Macrina Clement RN Paul Mccoy MD MD rn Wood, Whitney, RN RN ww
[2021-12-13 15:07] VITALS: TEMP 98.9
[2021-12-13 15:09] VITALS: BP 132/87; O2SAT 98
--- NOTE | 2021-12-14 09:52 | EKG ---
Test Date: 2021-12-13 Test Time: 14:53:50 Supervisor Cloth Winding: MB MEASUREMENT RESULTS: Intervals: Rate: 74 TN: 160 QRSD: 96 QT: 362 QTc: 401 [place]: P: 82 TN: 160 QRS: 83 T: 67 INTERPRETIVE STATEMENTS: Normal sinus rhythm with sinus arrhythmia Normal ECG Compared to ECG 12/13/2021 10:39:43 Incomplete right bundle-branch block no longer present Myocardial infarct finding no longer present Electronically Signed On 12-14-21 09:49:51 CDT by Manohar Mckeon
== END 2021-12-13 15:02 | disposition home or self-care (01) ==
LOC: ER 09:58
DX: M25.512 Pain in left shoulder (principal); R07.9 Chest pain, unspecified; E78.00 Pure hypercholesterolemia, unspecified; K74.60 Unspecified cirrhosis of liver; Z95.818 Presence of other cardiac implants and grafts
CPT/HCPCS: 36415; 71045; 72040; 80048; 81003; 83880; 84484; 85025; 93005; 99283

== ENCOUNTER 2023-03-06 20:03 | Emergency (ER) | payer OTHER ==
--- NOTE | 2023-03-06 20:50 | RAD REPORT ---
EXAM DESCRIPTION: CT - Head Brain Wo Cont - 03/06/2023 8:38 pm CLINICAL HISTORY: DIZZINESS Headache, hypertension, dizziness COMPARISON: Head Brain Wo Cont dated 04/30/2017 TECHNIQUE: All CT scans are performed using dose optimization technique as appropriate and may inclu de automated exposure control or mA/KV adjustment according to patient size. FINDINGS: No intracranial hemorrhage, hydrocephalus or extra-axial fluid collection.No areas of brai n edema or evidence of midline shift. The paranasal sinuses and mastoids are clear. The calvarium is intact. IMPRESSION: No acute intracranial abnormality.
--- OUTSIDE RECORDS SUMMARY | 2023-03-06 21:07 | XMS REPORT | Continuity of Care Document ---
:1950 Author Organization [facility] t Address [address] [facility] [address] [place] [address] Care Team Providers Name Role Phone Sol Taylor Attending Clinician Unavailable Problems This patient has no known problems. Allergies, Adverse Reactions, Alerts This patient has no known allergies or adverse reactions. Social History Social Habit Start Date Stop Date Quantity Comments Source History of Tobacco Use Co mmon [facility] Sex Assigned At Com mon [facility] Smoking Status Start Date Stop Date Source Never Smoker [facility] Medications This patient has no known medications. Vital Signs Vital Name Observation Time Observation Value Comments Source weight 2022-03-16 15:30:00 150.6 [lb_av] [facility] temperature 2022-03-16 15:30:00 98.1 [degF] [facility] bmi 2022-03-16 15:30:00 27.54 kg/m2 [facility] oximetry 2022-03-16 15:30:00 98 % [facility] respiratory rate 2022-03-16 15:30:00 16 /min Comm on [facility] blood pressure 2022-03-16 15:30:00 151 mm[Hg] Common [facility] - systolic [facility] blood pressure 2022-03-16 15:30:00 71 mm[Hg] Common [facility] - diastolic [facility] height 2022-03-16 15:30:00 62 [in_i] Common [facility] Procedures This patient has no known procedures. Encounters Start End Encounter Admission Attending Care Care Encounter Source Date/Time Date/Time Type Type Clinicians Facility Department ID 2022-07-29 [facility] [id number] 2 Common 14:12:01 Sol [id number] [facility] 2022-03-16 [facility] [id number] 2 Common 15:13:05 Sol [id number] [facility] 2023-01-24 2023-01-24 Outpatient SFA SFA [id number] [place] 07:55:51 07:55:51 [id number] [place] 2022-12-16 2022-12-16 Outpatient SFA SFA [id number] [place] 10:52:18 10:52:18 [id number] [facility] 2022-11-25 2022-11-25 Outpatient SFA SFA [id number] [place] 14:45:46 14:45:46 [id number] [facility] [place] 2022-10-26 2022-10-26 Outpatient SFA SFA [id number] [place] 15:03:19 15:03:19 [id number] [facility] 2022-03-16 2022-03-16 [id number] Co mmon 00:00:00 00:00:00 VISIT [facility] PT LEVEL 2 [facility] Results This patient has no known results.
--- NOTE | 2023-03-06 21:16 | RAD REPORT ---
EXAM DESCRIPTION: RAD - Chest Single View - 03/06/2023 8:56 pm CLINICAL HISTORY: COUGH Chest pain. COMPARISON: Chest Single View dated 12/13/2021; Chest Single View dated 06/20/2021; Chest Pa And Lat ( 2 Views) dated 06/25/2018; Chest Single View dated 04/30/2017 FINDINGS: Portable technique limits examination quality. The lungs are emphysematous but grossly clear. The heart is normal in size. No displaced fractures.Ao rtic atherosclerosis. IMPRESSION: Mild COPD.
[2023-03-06] MEDS ORDERED: NA CHLORIDE 0.9% 1,000 ML ONE (22:38)
[2023-03-06] MEDS ORDERED: NA CHLORIDE 0.9% 500 ML ONE (22:38)
[2023-03-06 23:01] LABS: Specific Gravity 1.011 (1.005-1.030); Urine Bilirubin NEGATIVE (Negative); Urine Blood Negative (Negative); Urine Clarity Clear (Clear); Urine Color Colorless (Yellow); Urine Glucose NEGATIVE (Negative); Urine Protein NEGATIVE (Negative); Urine Urobilinogen Normal (Normal); Urine pH 6.5 (5.0-7.0)
[2023-03-06 23:03] LABS: Absolute Lymphocytes (CBC) 1.4 K/uL (0.7-4.9); Hematocrit 42.4 % (39.6-49.0); Lymphocytes % 26.7 % (15.3-44.8); MCV 91.9 fL (80-100); MPV 9.4 fL (7.6-11.3); Platelets 149 thou/uL (152-406); RBC Red Blood Cell Count 4.61 M/uL (4.33-5.43)
[2023-03-06 23:04] LABS: Protime INR 1.05
[2023-03-06 23:20] LABS: ALT/SGPT 22 U/L (16-61); Albumin 3.8 g/dL (3.4-5.0); Alkaline Phosphatase 111 U/L (45-117); BUN Blood Urea Nitrogen 14 mg/dL (7-18); Bicarbonate 31 mEq/L (21-32); Bilirubin Total 0.3 mg/dL (0.2-1.0); Glomerular Filtration Rate 70 ml/min (=/>90); Glucose Level 91 mg/dL (74-106); Lipase 26 U/L (13-75); NT PRO-BNP 56 pg/mL (<125); Protein, Total 7.5 g/dL (6.4-8.2); Sodium Level 138 mEq/L (136-145); Troponin High Sensitivity 5.3 pg/mL (<58.9)
[2023-03-06 23:21] LABS: AST/SGOT 17 U/L (15-37); Bilirubin Direct < 0.1 mg/dL (0-0.2); Bilirubin Indirect, Calculated ND mg/dL (0.2-0.8); Magnesium 2.2 mg/dL (1.6-2.4)
--- NOTE | 2023-03-07 00:55 | EDPHYS ---
Physician Documentation [facility] Name: Prince Mahmood Age: 72 yrs Sex: Male : 1950 Arrival Date: 03/06/2023 Time: 20:03 Bed 5 Private MD: ED Physician Matthew Rowland HPI: 03/06 21:10 This 72 yrs old Male presents to ER via Ambulatory with complaints of aida Dizziness. 21:10 The patient presents with dizziness. Onset: The symptoms/episode began/occurred 5 aida day(s) ago. Context: occurred at an unknown location, just prior to the episode the patient experienced no apparent symptoms. Modifying factors: The symptoms are alleviated by nothing, the symptoms are aggravated by nothing. Associated signs and symptoms: Pertinent positives: headache. Severity of symptoms: At their worst the symptoms were mild moderate in the emergency department the symptoms are unchanged. Patient's baseline: Neuro: alert and fully oriented, Motor: no deficits. The patient has experienced similar episodes in the past, a few times. Historical: - Allergies: 20:46 No Known Drug Allergies; bp - PMHx: 20:46 blind in R eye; GERD; Cirrhosis; High Cholesterol; bp - PSHx: 20:46 cardiac stent; bp - Immunization history:: Adult Immunizations up to date. - Social history:: Smoking status: Patient denies any tobacco usage or history of. - Family history:: not pertinent. ROS: 21:10 Constitutional: Negative for fever, chills, and weight loss, Eyes: Negative for injury, aida pain, redness, and discharge, ENT: Negative for injury, pain, and discharge, Neck: Negative for injury, pain, and swelling, Cardiovascular: Negative for chest pain, palpitations, and edema, Respiratory: Negative for shortness of breath, cough, wheezing, and pleuritic chest pain, Abdomen/GI: Negative for abdominal pain, nausea, vomiting, diarrhea, and constipation, Back: Negative for injury and pain, : Negative for injury, bleeding, discharge, and swelling, MS/Extremity: Negative for injury and deformity, Skin: Negative for injury, rash, and discoloration, Psych: Negative for depression, anxiety, suicide ideation, homicidal ideation, and hallucinations, Allergy/Immunology: Negative for hives, rash, and allergies, Endocrine: Negative for neck swelling, polydipsia, polyuria, polyphagia, and marked weight changes, Hematologic/Lymphatic: Negative for swollen nodes, abnormal bleeding, and unusual bruising. 21:10 Neuro: Positive for dizziness, headache. Exam: 21:10 Constitutional: This is a well developed, well nourished patient who is awake, alert, aida and in no acute distress. Head/Face: Normocephalic, atraumatic. Eyes: Pupils equal round and reactive to light, extra-ocular motions intact. Lids and lashes normal. Conjunctiva and sclera are non-icteric and not injected. Cornea within normal limits. Periorbital areas with no swelling, redness, or edema. ENT: Nares patent. No nasal discharge, no septal abnormalities noted. Tympanic membranes are normal and external auditory canals are clear. Oropharynx with no redness, swelling, or masses, exudates, or evidence of obstruction, uvula midline. Mucous membranes moist. Neck: Trachea midline, no thyromegaly or masses palpated, and no cervical lymphadenopathy. Supple, full range of motion without nuchal rigidity, or vertebral point tenderness. No Meningismus. Chest/axilla: Normal chest wall appearance and motion. Nontender with no deformity. No lesions are appreciated. Cardiovascular: Regular rate and rhythm with a normal S1 and S2. No gallops, murmurs, or rubs. Normal PMI, no JVD. No pulse deficits. Respiratory: Lungs have equal breath sounds bilaterally, clear to auscultation and percussion. No rales, rhonchi or wheezes noted. No increased work of breathing, no retractions or nasal flaring. Abdomen/GI: Soft, non-tender, with normal bowel sounds. No distension or tympany. No guarding or rebound. No evidence of tenderness throughout. Back: No spinal tenderness. No costovertebral tenderness. Full range of motion. Male : Normal genitalia with no discharge or lesions. Skin: Warm, dry with normal turgor. Normal color with no rashes, no lesions, and no evidence of cellulitis. MS/ Extremity: Pulses equal, no cyanosis. Neurovascular intact. Full, normal range of motion. Neuro: Awake and alert, GCS 15, oriented to person, place, time, and situation. Cranial nerves II-XII grossly intact. Motor strength 5/5 in all extremities. Sensory grossly intact. Cerebellar exam normal. Normal gait. Psych: Awake, alert, with orientation to person, place and time. Behavior, mood, and affect are within normal limits. 03/07 00:33 ECG was reviewed by the Attending Physician. [facility] Vital Signs: 03/06 20:46 BP 159 / 70; Pulse 81; Resp 16; Temp 98; Pulse Ox 100% ; bp 23:57 BP 147 / 76; Pulse 68; Resp 16; Pulse Ox 98% on R/A; sg5 03/07 00:10 BP 159 / 92; Pulse 70; Resp 18; Pulse Ox 98% on R/A; sg5 00:36 BP 156 / 72; Pulse 71; Resp 18; Pulse Ox 99% ; vc1 MDM: 03/06 20:19 Patient medically screened. [facility] 21:19 Differential diagnosis: cardiac arrhythmia, CVA, generalized weakness, TIA. Data [facility] reviewed: vital signs, nurses notes, lab test result(s), EKG, radiologic studies, CT scan, plain films. Consideration of Admission/Observation Escalation of care including admission/observation considered. I considered the following discharge prescriptions or medication management in the emergency department Medications were administered in the Emergency Department. See MAR. Independent interpretation of the following test(s) in the Emergency Department EKG: See my EKG interpretation above. Test considered but Not performed: MRI: no mri brain. Historians other than the Patient: patient informed. 03/06 20:19 Order name: Basic Metabolic Panel; Complete Time: 00:16 [facility] 03/06 20:19 Order name: CBC with Diff; Complete Time: 23:18 [facility] 03/06 20:19 Order name: LFT's; Complete Time: 00:16 [facility] 03/06 20:19 Order name: Magnesium; Complete Time: 00:16 [facility] 03/06 20:19 Order name: NT PRO-BNP; Complete Time: 00:16 [facility] 03/06 20:19 Order name: PT-INR; Complete Time: 23:18 [facility] 03/06 20:19 Order name: Troponin HS; Complete Time: 00:16 [facility] 03/06 20:19 Order name: Lipase; Complete Time: 00:16 [facility] 03/06 20:19 Order name: Urinalysis w/ reflexes; Complete Time: 23:18 [facility] 03/06 20:19 Order name: XRAY Chest (1 view); Complete Time: 23:18 [facility] 03/06 20:19 Order name: CT Head Brain wo Cont; Complete Time: 21:04 [facility] 03/06 21:09 Order name: CT Head Angio [facility] 03/06 21:09 Order name: CT Neck Angio [facility] 03/06 20:19 Order name: EKG; Complete Time: 20:20 [facility] 03/06 20:19 Order name: Cardiac monitoring; Complete Time: 01:07 [facility] 03/06 20:19 Order name: EKG - Nurse/Tech; Complete Time: 00:34 [facility] 03/06 20:19 Order name: IV Saline Lock; Complete Time: 22:48 [facility] 03/06 20:19 Order name: Labs collected and sent; Complete Time: 22:48 [facility] 03/06 20:19 Order name: O2 Per Protocol; Complete Time: 00:36 [facility] 03/06 20:19 Order name: O2 Sat Monitoring; Complete Time: 00:36 [facility] EC/29 00:33 Rate is 81 beats/min. Rhythm is regular. QRS Melissa is Normal. [place] interval is normal. QRS aida interval is normal. QT interval is normal. No Q waves. T waves are Normal. No ST changes noted. Clinical impression: Normal ECG and No evidence of ischemia. Interpreted by me. Reviewed by me. Administered Medications: 03/06 22:48 Drug: NS 0.9% IV 500 ml Route: IV; Rate: bolus; Site: right antecubital; sg5 22:48 Drug: NS 0.9% IV 1000 ml Route: IV; Rate: 125 ml/hr; Site: right antecubital; sg5 Disposition Summary: 03/07/23 00:55 Discharge Ordered Location: Home aida Problem: new aida Symptoms: have improved aida Condition: Fair aida Diagnosis - Dizziness and giddiness aida - Headache aida Followup: aida - With: Private Physician - When: 2 - 3 days - Reason: Recheck today's complaints, Continuance of care, Re-evaluation by your physician Followup: aida - With: - When: 2 - 3 days - Reason: Recheck today's complaints, Continuance of care, Re-evaluation by your physician Followup: aida - With: - When: 2 - 3 days - Reason: Recheck today's complaints, Continuance of care, Re-evaluation by your physician Discharge Instructions: - Discharge Summary Sheet aida - Dizziness aida - General Headache Without Cause aida - General Headache Without Cause, [id number] aida Forms: - Medication Reconciliation Form aida - Thank You Letter aida - Antibiotic Education aida - Prescription Opioid Use aida - Patient Portal Instructions aida - Leadership Thank You Letter aida Prescriptions: - Fioricet with Codeine [id number] mg Oral capsule - take 2 capsule by ORAL route every 4 hours as needed for pain; do not exceed 6 aida caps per day; 15 capsule; Refills: 0, Product Selection Permitted - ondansetron 4 mg Oral Tablet,disintegrating - take 1 tablet by ORAL route every 6 to 8 hours for 5 days; 20 tablet; Refills: aida 0, Product Selection Permitted - Meclizine 25 mg Oral Tablet - take 1 tablet by ORAL route every 8 hours As needed; 30 tablet; Refills: 0, [facility] Product Selection Permitted Signatures: Dispatcher [employer] Matthew Anand MD MD cha Peltier, Brian, RN RN Karin Zendejas RN RN sg5
--- NOTE | 2023-03-07 00:55 | ER ---
Nurse's Notes [facility] Name: Prince Mahmood Age: 72 yrs Sex: Male : 1950 Arrival Date: 03/06/2023 Time: 20:03 Bed 5 Private MD: Diagnosis: Dizziness and giddiness;Headache Presentation: 03/06 20:46 Chief complaint: Patient states: DIZZINESS x1 WK. Coronavirus screen: At this time, the bp client does not indicate any symptoms associated with coronavirus-19. Ebola Screen: No symptoms or risks identified at this time. Initial Sepsis Screen: Does the patient meet any 2 criteria? No. Patient's initial sepsis screen is negative. Does the patient have a suspected source of infection? No. Patient's initial sepsis screen is negative. Risk Assessment: Do you want to hurt yourself or someone else? Patient reports no desire to harm self or others. Onset of symptoms is unknown. 20:46 Method Of Arrival: Ambulatory bp 20:46 Acuity: TIFFANIE 3 bp Historical: - Allergies: 20:46 No Known Drug Allergies; bp - PMHx: 20:46 blind in R eye; GERD; Cirrhosis; High Cholesterol; bp - PSHx: 20:46 cardiac stent; bp - Immunization history:: Adult Immunizations up to date. - Social history:: Smoking status: Patient denies any tobacco usage or history of. - Family history:: not pertinent. Screenin/29 01:12 [facility] ED Fall Risk Assessment (Adult) History of falling in the last 3 months, vc1 including since admission No falls in past 3 months (0 pts) Confusion or Disorientation No (0 pts) Intoxicated or Sedated No (0 pts) Impaired Gait No (0 pts) Mobility Assist Device Used No (0 pt) Altered Elimination No (0 pt) Score/Fall Risk Level 0 - 2 = Low Risk Oriented to surroundings, Maintained a safe environment, Educated pt \T\ family on fall prevention, incl call for assistance when getting out of bed. Abuse screen: Denies threats or abuse. Nutritional screening: No deficits noted. Tuberculosis screening: No symptoms or risk factors identified. Assessment: 03/06 23:57 General: Appears in no apparent distress. comfortable, Behavior is calm, cooperative, sg5 appropriate for age, Reports. Pain: Denies pain. Neuro: Level of Consciousness is awake, alert, obeys commands, Oriented to person, place, time, situation, Appropriate for age Reports dizziness, weakness. Cardiovascular: Capillary refill < 3 seconds Patient's skin is warm and dry. Respiratory: Airway is patent Trachea midline Respiratory effort is even, unlabored, Respiratory pattern is regular, symmetrical. GI: Abdomen is non-distended. : No signs and/or symptoms were reported regarding the genitourinary system. EENT: No signs and/or symptoms were reported regarding the EENT system. Derm: No signs and/or symptoms reported regarding the dermatologic system. Musculoskeletal: No signs and/or symptoms reported regarding the musculoskeletal system. 03/07 00:37 Reassessment: No changes from previously documented assessment. Patient and/or family vc1 updated on plan of care and expected duration. Pain level reassessed. Patient is alert, oriented x 3, equal unlabored respirations, skin warm/dry/pink. Vital Signs: 03/06 20:46 BP 159 / 70; Pulse 81; Resp 16; Temp 98; Pulse Ox 100% ; bp 23:57 BP 147 / 76; Pulse 68; Resp 16; Pulse Ox 98% on R/A; sg5 03/07 00:10 BP 159 / 92; Pulse 70; Resp 18; Pulse Ox 98% on R/A; sg5 00:36 BP 156 / 72; Pulse 71; Resp 18; Pulse Ox 99% ; vc1 ED Course: 03/06 20:04 Patient arrived in ED. ag3 20:18 Matthew Rowland MD is Attending Physician. aida 20:39 CT Head Brain wo Cont In Process Unspecified. EDMS 20:46 Triage completed. bp 20:46 Arm band placed on. bp 20:58 XRAY Chest (1 view) In Process Unspecified. EDMS 21:00 Patient has correct armband on for positive identification. Bed in low position. Call vc1 light in reach. Client placed on continuous cardiac and pulse oximetry monitoring. NIBP monitoring applied. 22:48 CT Head Angio In Process Unspecified. EDMS 22:48 CT Neck Angio In Process Unspecified. EDMS 22:48 Inserted saline lock: 20 gauge in right antecubital area, using aseptic technique. sg5 Blood collected. 03/07 00:55 Thomas Wilkinson MD is Referral Physician. aida 00:55 Fernanda Hale MD is Referral Physician. aida 01:13 No provider procedures requiring assistance completed. IV discontinued, intact, vc1 bleeding controlled, No redness/swelling at site. Pressure dressing applied. Administered Medications: 03/06 22:48 Drug: NS 0.9% IV 500 ml Route: IV; Rate: bolus; Site: right antecubital; sg5 22:48 Drug: NS 0.9% IV 1000 ml Route: IV; Rate: 125 ml/hr; Site: right antecubital; sg5 Medication: 03/07 01:13 VIS not applicable for this client. vc1 Outcome: 00:55 Discharge ordered by . aida 01:13 Discharged to home ambulatory. vc1 01:13 Condition: good 01:13 Discharge instructions given to patient, Instructed on discharge instructions, follow up and referral plans. medication usage, Demonstrated understanding of instructions, follow-up care, medications, Prescriptions given X 3. 01:13 Patient left the ED. vc1 Signatures: Dispatcher [employer] EDMS Matthew Rowland MD MD cha Peltier, Brian, RN RN Svitlana Barboza3 Helena Love RN RN vc1 Karin Fenton RN RN sg5
[2023-03-07 02:41] VITALS: BP 156/72; O2SAT 99
[2023-03-07 03:57] VITALS: TEMP 98
--- NOTE | 2023-03-07 14:09 | RAD REPORT ---
EXAM DESCRIPTION: CT - Head angio - 03/07/2023 6:56 am CLINICAL HISTORY: 72 years, Male, DIZZINESS COMPARISON: CT head without contrast 03/06/2023 TECHNIQUE: Axial CTA images of the head and neck obtained following the administration of IV contras t. 3-D/MIP reformatted images available. This exam was performed according to our departmental dose-o ptimization program, which includes automated exposure control, adjustment of the mA and/or kV accord ing to patient size and/or use of iterative reconstruction technique. Assessment of carotid artery stenosis is based on measurements of the distal internal carotid artery diameter as the denominator for stenosis calcifications in the [place] symptomatic carotid end arterectomy trial (NASCET) stenosis criteria. FINDINGS: CTA head: Anterior circulation: The intracranial internal carotid arteries are patent. There is some mild ather osclerotic plaque involving the intracranial internal carotid arteries without significant stenosis. The internal carotid arteries bifurcate into patent A1 and M1 segments of the anterior and middle cer ebral arteries respectively. No evidence of flow-limiting stenosis, aneurysm, occlusion, or dissectio n in the anterior circulation. The anterior communicating artery is patent. Posterior circulation: The intracranial vertebral, basilar, superior cerebellar, and posterior cerebr al arteries are patent. No evidence of stenosis, aneurysm, occlusion, or dissection in the posterior circulation. No definite acute intracranial abnormality identified. No acute abnormality of the osseous calvarium. Paranasal sinuses and mastoid air cells are well aerated. Stable appearance of the right lobe with a djacent partially calcified structure. Correlate with history. CTA NECK: The visualized aortic arch has normal anatomic configuration. Origin of the brachiocephalic artery is not fully included. The right common carotid artery is patent and bifurcates into patent internal and external carotid ar teries. No significant stenosis. No evidence of occlusion or dissection. The left common carotid artery is patent and bifurcates into patent internal and external carotid art eries. No significant stenosis. No evidence of occlusion or dissection. The cervical vertebral arteries are patent throughout their course. No evidence of occlusion, stenosi s, or dissection. No definite acute abnormalities in the neck soft tissues. No apical pneumothorax. No acute osseous ab normalities. IMPRESSION: Patent intracranial and cervical arterial vasculature. No aneurysm, stenosis, segmental occlusion, or dissection identified. Electronically signed by: Juanita Archer MD 03/07/2023 12:50 AM CDT Due to temporary technical issues with the PACS/Fluency reporting system, reports are being signed b y the in house radiologists without review as a courtesy to insure prompt reporting. The interpreting radiologist is fully responsible for the content of the report.
--- NOTE | 2023-03-07 14:52 | RAD REPORT ---
EXAM DESCRIPTION: CT - Neck Angio - 03/07/2023 6:57 am CLINICAL HISTORY: 72 years, Male, DIZZINESS COMPARISON: CT head without contrast 03/06/2023 TECHNIQUE: Axial CTA images of the head and neck obtained following the administration of IV contras t. 3-D/MIP reformatted images available. This exam was performed according to our departmental dose-o ptimization program, which includes automated exposure control, adjustment of the mA and/or kV accord ing to patient size and/or use of iterative reconstruction technique. Assessment of carotid artery stenosis is based on measurements of the distal internal carotid artery diameter as the denominator for stenosis calcifications in the [place] symptomatic carotid end arterectomy trial (NASCET) stenosis criteria. FINDINGS: CTA head: Anterior circulation: The intracranial internal carotid arteries are patent. There is some mild ather osclerotic plaque involving the intracranial internal carotid arteries without significant stenosis. The internal carotid arteries bifurcate into patent A1 and M1 segments of the anterior and middle cer ebral arteries respectively. No evidence of flow-limiting stenosis, aneurysm, occlusion, or dissectio n in the anterior circulation. The anterior communicating artery is patent. Posterior circulation: The intracranial vertebral, basilar, superior cerebellar, and posterior cerebr al arteries are patent. No evidence of stenosis, aneurysm, occlusion, or dissection in the posterior circulation. No definite acute intracranial abnormality identified. No acute abnormality of the osseous calvarium. Paranasal sinuses and mastoid air cells are well aerated. Stable appearance of the right lobe with a djacent partially calcified structure. Correlate with history. CTA NECK: The visualized aortic arch has normal anatomic configuration. Origin of the brachiocephalic artery is not fully included. The right common carotid artery is patent and bifurcates into patent internal and external carotid ar teries. No significant stenosis. No evidence of occlusion or dissection. The left common carotid artery is patent and bifurcates into patent internal and external carotid art eries. No significant stenosis. No evidence of occlusion or dissection. The cervical vertebral arteries are patent throughout their course. No evidence of occlusion, stenosi s, or dissection. No definite acute abnormalities in the neck soft tissues. No apical pneumothorax. No acute osseous ab normalities. IMPRESSION: Patent intracranial and cervical arterial vasculature. No aneurysm, stenosis, segmental occlusion, or dissection identified. Electronically signed by: Juanita Archer MD 03/07/2023 12:50 AM CDT Due to temporary technical issues with the PACS/Fluency reporting system, reports are being signed b y the in house radiologists without review as a courtesy to insure prompt reporting. The interpreting radiologist is fully responsible for the content of the report.
--- NOTE | 2023-03-07 16:27 | EKG ---
Test Date: 2023-03-07 Test Time: 00:30:20 Esthetician/Skin Therapist: FLORENCIO MEASUREMENT RESULTS: Intervals: Rate: 81 OH: 178 QRSD: 94 QT: 368 QTc: 427 [place]: P: 77 OH: 178 QRS: 75 T: 53 INTERPRETIVE STATEMENTS: Normal sinus rhythm Normal ECG Compared to ECG 12/13/2021 14:53:50 Sinus arrhythmia no longer present Electronically Signed On 03-07-23 16:25:32 CDT by Flakito Liu
== END 2023-03-07 01:13 | disposition home or self-care (01) ==
LOC: ER 20:03
DX: R42 Dizziness and giddiness (principal); R51.9 Headache, unspecified; E78.00 Pure hypercholesterolemia, unspecified; Z95.818 Presence of other cardiac implants and grafts
CPT/HCPCS: 93005; 85025; 80048; 36415; 83735; 85610; 80076; 81003; 84484; 83690; 83880; 70450; 70496; 70498; 71045; 99284; Q9967; J7040; J7030